=== PATIENT | male | born 1990 | race Caucasian/White ===

== ENCOUNTER 2024-06-08 09:19 | Emergency (ER) | payer MEDICAID | END 2024-06-08 11:04 | disposition home or self-care (01) | LOC: EDBD 09:19 → MW.ED 09:19 | DX: S09.90XA Unspecified injury of head, initial encounter (principal); F17.210 Nicotine dependence, cigarettes, uncomplicated; Z90.89 Acquired absence of other organs; Z88.5 Allergy status to narcotic agent; Z88.8 Allergy status to other drugs, medicaments and biological substances; Z79.899 Other long term (current) drug therapy; W22.8XXA Striking against or struck by other objects, initial encounter | CPT/HCPCS: 70450; 70450-26; 99283 ==

== ENCOUNTER 2024-06-11 20:57 | Emergency (ER) | payer MEDICAID | END 2024-06-11 22:36 | disposition home or self-care (01) | LOC: MW.ED 20:57 | DX: M17.11 Unilateral primary osteoarthritis, right knee (principal); Z90.89 Acquired absence of other organs; Z88.5 Allergy status to narcotic agent; Z88.8 Allergy status to other drugs, medicaments and biological substances; Z79.899 Other long term (current) drug therapy | CPT/HCPCS: 73562-26-RT; 73562-RT; 99283 ==